=== PATIENT | male | born 1995 | race Caucasian/White ===

== ENCOUNTER 2020-06-24 17:03 | Outpatient (CLI) | payer OTHER, SELFPAY ==
[2020-06-24 18:08] LABS: SARS-CoV-2 Ag Negative (Negative)
== END 2020-06-24 17:04 | disposition home or self-care (01) ==
LOC: CHSLAB 17:07
PROVIDERS: PCP Family Medicine; Visit Provider Physician Assistant
DX: Z20.828 Contact with and (suspected) exposure to other viral communicable diseases (principal)
CPT/HCPCS: 87426